=== PATIENT | male | born 1995 | race African-American/Black ===

== ENCOUNTER 2016-10-18 14:42 | Emergency (ER) | payer SELFPAY ==
[~2016-10-18] VITALS: Ht 175.3 cm; Wt 67.5 kg
[2016-10-18] MEDS ORDERED: ROBITUSSIN NIG118 ML PO (18:36)
[2016-10-18] MEDS ORDERED: TESSALON200 MG PO (18:36)
[2016-10-18] MEDS ORDERED: MUCUS ER600 MG PO (18:36)
[2016-10-18] MEDS ORDERED: ZYRTEC10 M2 PO (18:36)
[2016-10-18] MEDS ORDERED: PROVENTIL HFA6.7 GM IH (18:36)
[2016-10-18 19:52] VITALS: BP 143/62
== END 2016-10-18 19:52 | disposition home or self-care (01) ==
LOC: EME 14:42 → RME 14:42 → EDBD 14:42 → RME 19:52
PROC: 3E1B78Z Irrigation of Ear using Irrigating Substance, Via Natural or Artificial Opening (ICD-10-PCS; principal; 2016-10-18)
DX: J20.9 Acute bronchitis, unspecified (principal); H10.13 Acute atopic conjunctivitis, bilateral; H61.23 Impacted cerumen, bilateral; F17.200 Nicotine dependence, unspecified, uncomplicated; F12.10 Cannabis abuse, uncomplicated
CPT/HCPCS: 71020; 94640; 99281; 99283

== ENCOUNTER 2016-10-24 12:41 | Inpatient (IN) | payer SELFPAY ==
[~2016-10-24] VITALS: Ht 170.2 cm; Wt 67.7 kg
[~2016-10-24 12:41] MED LIST: MUCUS ER600 MG PO; PROVENTIL HFA6.7 GM IH; ROBITUSSIN NIG118 ML PO; TESSALON200 MG PO; ZYRTEC10 M2 PO
[2016-10-24 13:37] LABS: HEMATOCRIT 51.1 % (38.0-50.0); MCH 29.4 PG (29.0-34.0); MCHC 32.3 G/DL (30.0-36.0); MCV 90.9 FL (86-99); MEAN PLAT.VOLUME 9.8 uM^3 (9.0-12.4); PLATELET COUNT 256 K/uL (156-360); RBC DIS.WIDTH-CV 13.2 % (11.8-14.6); RBC DIS.WIDTH-SD 44.5 % (39-53); RED BLOOD COUNT 5.62 M/uL (4.00-5.50)
[2016-10-24 13:48] LABS: CHLORIDE 105 mEq/L (99-109); POTASSIUM 4.2 mEq/L (3.7-5.4); SODIUM 141 mEq/L (136-147)
[2016-10-24 13:50] LABS: GLUCOSE 88 mg/dL (70-99)
[2016-10-24 13:51] LABS: ANION GAP 9 MEQ/L (2-14)
[2016-10-24 13:52] LABS: TOTAL BILIRUBIN 0.5 mg/dL (0.0-1.0)
[2016-10-24 13:54] LABS: ALKALINE PHOSPHATASE 88 IU/L (3-129); GFR ESTIMATE (CALCULATED) > 59 mL/min/
[2016-10-24 13:55] LABS: UREA NITROGEN (BUN) 7 mg/dL (9-23)
[2016-10-24 14:22] LABS: LIPASE 314 U/L (1.0-51.0)
[2016-10-24 14:46] LABS: ADD MIUA? YES; BILIRUBIN NEGATIVE; BLOOD NEGATIVE; COLOR STRAW ((YELLOW)); GLUCOSE (STRIP) NEGATIVE; KETONES NEGATIVE; LEUKOCYTES TRACE; NITRITE NEGATIVE; PROTEIN (STRIP) NEGATIVE; SPECIFIC GRAVITY 1.005 (1.000-1.030); UROBILINOGEN 0.2 MG/DL (0.2-1.0)
[2016-10-24 14:53] LABS: BACTERIA RARE /HPF; EPITHELIAL CELLS NONE SEEN /HPF; MUCUS NONE SEEN /LPF; RED BLOOD CELLS 0-5 /HPF (0-5); UCUL ADDED? NO
[2016-10-24 19:23] VITALS: BP 159/95
[2016-10-25 00:03] VITALS: BP 159/101
[2016-10-25 07:14] VITALS: BP 123/59
[2016-10-25 07:51] LABS: ANION GAP 7 MEQ/L (2-14); CHLORIDE 104 MEQ/L (99-109); GFR ESTIMATE (CALCULATED) > 59 mL/min/; GLUCOSE 125 mg/dL (70-99); POTASSIUM 4.1 MEQ/L (3.7-5.4); SAMPLE HEMOLYSIS CHECK 0; SAMPLE ICTERIC CHECK 0; SAMPLE LIPEMIA CHECK 0; SODIUM 139 MEQ/L (136-147); UREA NITROGEN (BUN) 4 mg/dL (9-23)
[2016-10-25 09:33] LABS: HDL CHOLESTEROL 47 MG/DL (Desirable>=40); LDL CHOLESTEROL 66 mg/dL (Desirable<100); LIPASE 19 U/L (1.0-51.0); NON-HDL CHOLESTEROL 77 mg/dL (Desirable<160); TOTAL CHOLESTEROL 124 mg/dL (Desirable<200); TRIGLYCERIDES 56 MG/DL (Normal: <150)
[2016-10-25 16:17] VITALS: BP 142/93
[2016-10-25 20:06] LABS: AMPHETAMINES QUANT VALUE 0 NG/ML; BARBITUATES QUANT VALUE 0 NG/ML; BENZODIAZEPINES QUANT VALUE 0 NG/ML; BENZODIAZEPINES, URINE SCREEN Negative (200 ng/mL); PHENCYCLIDINE QUANT VALUE 0 NG/ML
[2016-10-26 08:05] LABS: EOSINOPHIL (%) 0.7 % (0-5); EOSINOPHIL COUNT 0.1 K/uL (0-0.3); HEMATOCRIT 45.1 % (38.0-50.0); IMMATURE GRANULOCYTE (%) 0.6 % (0.0-0.7); IMMATURE GRANULOCYTE COUNT 0.1 K/uL; INSTRUMENT ABS NEUTROPHIL CT 4.1 K/uL; MCH 29.4 PG (29.0-34.0); MCHC 31.7 G/DL (30.0-36.0); MCV 92.6 FL (86-99); MEAN PLAT.VOLUME 10.6 uM^3 (9.0-12.4); MONOCYTE (%) 11.6 % (3-12); MONOCYTE COUNT 0.9 K/uL (0-0.8); NEUTROPHIL (%) 50.2 % (45-76); NEUTROPHIL COUNT 4.1 K/uL (1.8-6.4); PLATELET COUNT 279 K/uL (156-360); RBC DIS.WIDTH-CV 13.4 % (11.8-14.6); RBC DIS.WIDTH-SD 46.4 % (39-53); RED BLOOD COUNT 4.87 M/uL (4.00-5.50); WHITE BLOOD COUNT 8.1 K/uL (4.1-10.2)
[2016-10-26 08:27] VITALS: BP 145/66
[2016-10-26 08:36] LABS: ALKALINE PHOSPHATASE 66 IU/L (3-129); ANION GAP 7 MEQ/L (2-14); CHLORIDE 103 MEQ/L (99-109); GFR ESTIMATE (CALCULATED) > 59 mL/min/; LIPASE 15 U/L (1.0-51.0); POTASSIUM 4.6 MEQ/L (3.7-5.4); SAMPLE HEMOLYSIS CHECK 0; SAMPLE ICTERIC CHECK 0; SAMPLE LIPEMIA CHECK 0; SODIUM 142 MEQ/L (136-147); TOTAL BILIRUBIN 0.6 MG/DL (0.0-1.0); UREA NITROGEN (BUN) 4 mg/dL (9-23)
[2016-10-26 08:43] LABS: GLUCOSE 76 mg/dL (70-99)
[2016-10-26 16:14] VITALS: BP 138/82
[2016-10-26 23:29] VITALS: BP 132/75
[2016-10-27 07:28] VITALS: BP 119/71
[2016-10-27 18:51] VITALS: BP 120/73
[2016-10-27 22:45] VITALS: BP 139/85
[2016-10-28 07:25] LABS: HEMATOCRIT 44.5 % (38.0-50.0); MCH 29.3 PG (29.0-34.0); MCHC 32.4 G/DL (30.0-36.0); MCV 90.6 FL (86-99); MEAN PLAT.VOLUME 10.3 uM^3 (9.0-12.4); PLATELET COUNT 294 K/uL (156-360); RBC DIS.WIDTH-CV 12.6 % (11.8-14.6); RBC DIS.WIDTH-SD 41.8 % (39-53); RED BLOOD COUNT 4.91 M/uL (4.00-5.50); WHITE BLOOD COUNT 6.7 K/uL (4.1-10.2)
[2016-10-28 07:37] VITALS: BP 125/70
[2016-10-28 07:58] LABS: ANION GAP 6 MEQ/L (2-14); CHLORIDE 102 MEQ/L (99-109); GFR ESTIMATE (CALCULATED) > 59 mL/min/; GLUCOSE 78 mg/dL (70-99); LIPASE 11 U/L (1.0-51.0); MAGNESIUM 1.7 mg/dl (1.3-2.7); SAMPLE HEMOLYSIS CHECK 0; SAMPLE ICTERIC CHECK 0; SAMPLE LIPEMIA CHECK 0; SODIUM 139 MEQ/L (136-147); UREA NITROGEN (BUN) 5 mg/dL (9-23)
[2016-10-28 08:00] LABS: POTASSIUM 3.6 MEQ/L (3.7-5.4)
[2016-10-28 13:42] VITALS: BP 1189/72
[2016-10-28] MEDS ORDERED: ZYRTEC10 M3 PO (13:42)
[2016-10-28] MEDS ORDERED: Thiamine,Vitamin B1 PO (13:42)
[2016-10-28] MEDS ORDERED: FOLIC ACID1 MG PO (13:42)
[2016-10-28] MEDS ORDERED: BENTYL10 MG PO (13:46)
== END 2016-10-28 16:57 | disposition home or self-care (01) | DRG 440 ==
LOC: EME 12:41 → 5EAST 17:33 → EDOF 17:33 → 5EAST 19:14
PROVIDERS: Hospitalist; Internal Medicine
DX: K85.20 Alcohol induced acute pancreatitis without necrosis or infection (principal); F10.10 Alcohol abuse, uncomplicated; F12.10 Cannabis abuse, uncomplicated; H10.13 Acute atopic conjunctivitis, bilateral; T49.5X5A Adverse effect of ophthalmological drugs and preparations, initial encounter; Y92.238 Other place in hospital as the place of occurrence of the external cause; F17.210 Nicotine dependence, cigarettes, uncomplicated; Z59.0 Homelessness
CPT/HCPCS: 71020; 74177; 76705; 80048; 80053; 80061; 80306 90; 81003; 83690; 83735; 85025; 85027; 94640; 94640 76; 94760; 99202; 99281; 99285; J1100; J1650; J2270; J2405; J7030; J7042; S0028

== ENCOUNTER 2016-12-06 00:57 | Emergency (ER) | payer SELFPAY ==
[~2016-12-06] VITALS: Ht 175.3 cm; Wt 68.1 kg
[~2016-12-06 00:57] MED LIST changes: +BENTYL10 MG PO; +FOLIC ACID1 MG PO; +Thiamine,Vitamin B1 PO; +ZYRTEC10 M3 PO
[2016-12-06 02:03] LABS: HEMATOCRIT 47.4 % (38.0-50.0); MCH 29.4 PG (29.0-34.0); MCHC 32.3 G/DL (30.0-36.0); MCV 91.2 FL (86-99); MEAN PLAT.VOLUME 10.5 uM^3 (9.0-12.4); PLATELET COUNT 211 K/uL (156-360); RBC DIS.WIDTH-CV 13.2 % (11.8-14.6); RBC DIS.WIDTH-SD 44.4 % (39-53); WHITE BLOOD COUNT 8.3 K/uL (4.1-10.2)
[2016-12-06 02:06] LABS: CHLORIDE 103 mEq/L (99-109); POTASSIUM 3.4 mEq/L (3.7-5.4); SODIUM 141 mEq/L (136-147)
[2016-12-06 02:08] LABS: GLUCOSE 83 mg/dL (70-99)
[2016-12-06 02:10] LABS: ANION GAP 11 MEQ/L (2-14); TOTAL BILIRUBIN 0.6 mg/dL (0.0-1.0)
[2016-12-06 02:11] LABS: SERUM ETHYL ALCOHOL < 10 mg/dL
[2016-12-06 02:12] LABS: ALKALINE PHOSPHATASE 82 IU/L (3-129); GFR ESTIMATE (CALCULATED) > 59 mL/min/
[2016-12-06 02:13] LABS: UREA NITROGEN (BUN) 5 mg/dL (9-23)
[2016-12-06 02:27] LABS: LIPASE 12 U/L (1.0-51.0)
[2016-12-06] MEDS ORDERED: ZOFRAN8 MG PO (03:31)
[2016-12-06] MEDS ORDERED: NORCO 5/3251 TABLET PO (03:31)
[2016-12-06] MEDS ORDERED: PEPCID20 MG PO (03:32)
[2016-12-06 03:45] VITALS: BP 143/88
== END 2016-12-06 03:58 | disposition home or self-care (01) ==
LOC: EME 00:57
PROVIDERS: Emergency Medicine
DX: R10.13 Epigastric pain (principal); F10.10 Alcohol abuse, uncomplicated; J45.909 Unspecified asthma, uncomplicated; F17.200 Nicotine dependence, unspecified, uncomplicated
CPT/HCPCS: 74177; 80053; 81003; 83690; 85027; 99281; 99285; G0480; J2270; J2405; J7030

== ENCOUNTER 2017-08-03 20:00 | Emergency (ER) | payer SELFPAY ==
[~2017-08-03] VITALS: Ht 175.3 cm; Wt 78.2 kg
[~2017-08-03 20:00] MED LIST changes: +NORCO 5/3251 TABLET PO; +PEPCID20 MG PO; +ZOFRAN8 MG PO
[2017-08-03 21:28] LABS: HEMATOCRIT 50.7 % (38.0-50.0); MCH 29.3 PG (29.0-34.0); MCHC 33.5 G/DL (30.0-36.0); MCV 87.3 FL (86-99); PLATELET COUNT 218 K/uL (156-360); RBC DIS.WIDTH-CV 13.8 % (11.8-14.6); RBC DIS.WIDTH-SD 44.6 % (39-53); RED BLOOD COUNT 5.81 M/uL (4.00-5.50); WHITE BLOOD COUNT 8.4 K/uL (4.1-10.2)
[2017-08-03 21:36] LABS: ALBUMIN 4.6 g/dL (3.2-4.8); CHLORIDE 103 mEq/L (99-109); POTASSIUM 4.5 mEq/L (3.7-5.4); SODIUM 140 mEq/L (136-147)
[2017-08-03 21:39] LABS: GLUCOSE 89 mg/dL (70-99); TOTAL PROTEIN 7.5 g/dL (6.4-8.3)
[2017-08-03 21:40] LABS: TOTAL BILIRUBIN 0.9 mg/dL (0.0-1.0)
[2017-08-03 21:42] LABS: ALKALINE PHOSPHATASE 99 IU/L (3-129); CREATININE 1.2 mg/dL (0.6-1.3); GFR ESTIMATE (CALCULATED) > 59 mL/min/ (58.99-99999); SERUM ETHYL ALCOHOL 27 mg/dL
[2017-08-03 21:43] LABS: UREA NITROGEN (BUN) 13 mg/dL (9-23)
[2017-08-03 21:44] LABS: AST (GOT) 44 IU/L (2-34)
[2017-08-03 21:45] LABS: ALT (GPT) 25 IU/L (3-49)
[2017-08-03 21:46] LABS: LIPASE 30 U/L (1.0-51.0)
[2017-08-03] MEDS ORDERED: CARAFATE1 GM PO (23:19)
[2017-08-03] MEDS ORDERED: TRAMADOL HCL50 MG PO (23:19)
[2017-08-03] MEDS ORDERED: ZANTAC300 MG PO (23:19)
[2017-08-03 23:36] LABS: AMYLASE 239 IU/L (1-118)
[2017-08-03 23:51] VITALS: BP 135/82
== END 2017-08-03 23:59 | disposition home or self-care (01) ==
LOC: EME 21:13
DX: K29.70 Gastritis, unspecified, without bleeding (principal); F10.10 Alcohol abuse, uncomplicated; Y90.1 Blood alcohol level of 20-39 mg/100 ml; J45.909 Unspecified asthma, uncomplicated; Z86.73 Personal history of transient ischemic attack (TIA), and cerebral infarction without residual deficits; F17.200 Nicotine dependence, unspecified, uncomplicated
CPT/HCPCS: 80053; 82150; 83690; 85027; 99281; 99284; G0480